=== PATIENT | female | born 1985 | race Caucasian/White ===

== ENCOUNTER 2018-11-18 18:54 | Outpatient (CLI) | payer MEDICAID ==
[~2018-11-18] VITALS: Ht 165.1 cm; Wt 85.7 kg
[~2018-11-18 18:54] MED LIST: non
[2018-11-18 19:14] VITALS: BP 112/66; PULSE 80; RESP 16
== END 2018-11-18 21:30 | disposition left against medical advice (07) ==
LOC: OBT 18:54 → L-D 18:54 → OBT 21:30
PROVIDERS: ATTEND Obstetrics & Gynecology
DX: O36.8130 Decreased fetal movements, third trimester, not applicable or unspecified (principal); O26.893 Other specified pregnancy related conditions, third trimester; R51 Headache; R10.13 Epigastric pain; H53.8 Other visual disturbances; Z3A.38 38 weeks gestation of pregnancy
CPT/HCPCS: 76705; 76815; 76818; 80053; 81003; 84560; 85025; G0463